=== PATIENT | male | born 1975 | race Caucasian/White ===

== ENCOUNTER → 2017-02-09 | Outpatient (CLI) | payer BC ==
--- NOTE | 2017-02-09 14:34 | Diagnostic Imaging Report ---
EXAMINATION: Magnetic resonance imaging of the left knee without intravenous contrast. DATE: 02/09/2017 COMPARISON: None. INDICATION: Chronic left knee pain around patella. History of previous arthroscopic surgery with microfracture surgery cartilage loss. TECHNIQUE: Multiplanar, multisequence non contrast enhanced MR imaging was accomplished. FINDINGS: MENISCI: There is noted some fraying of the medial meniscus along the central free margin with a few loose fragments demonstrated. Majority of the medial meniscus is intact. The lateral meniscus is intact. LIGAMENTS AND TENDONS: The anterior and posterior cruciate ligaments are intact. The medial collateral ligament is intact. The iliotibial band, mid third lateral capsular ligament, fibular collateral ligament, biceps femoris tendon and conjoined tendon are intact. The quadriceps tendon and patella ligament are intact. JOINT: There is mild thinning of the articulating cartilage along the medial femoral condyle. There are a few small subcortical cystic changes. No cortical fractures are demonstrated. The lateral femoral condyle shows good preservation of articulating cartilage. The patellofemoral joint is in good alignment. The articulating cartilage appears normal. No osteophyte formation noted. No subcortical cystic changes. There is a small joint effusion present. No definite loose bodies demonstrated. BONE: There is unremarkable bone marrow signal. Specifically, negative for fracture, osteomyelitis, osteonecrosis, or marrow replacing process. BURSAE AND SOFT TISSUES: No evidence of Ralph's cyst. The surrounding soft tissues and tendons appear normal. IMPRESSION: 1. There is mild fraying along the central free margin of the medial meniscus. 2. There is thinning of the articulating cartilage along the medial femoral condyle with subcortical cystic change. No cortical fractures demonstrated. 3. There is small joint effusion. 4. Patellofemoral joint appears normal. Dictated by: Dictated on workstation # [id number]
== END ==
LOC: RAD 13:01
PROVIDERS: ATTEND Orthopaedic Surgery
DX: M23.232 Derangement of other medial meniscus due to old tear or injury, left knee (principal)
CPT/HCPCS: 73721